=== PATIENT | male | born 1950 | race Caucasian/White ===

== ENCOUNTER → 2020-08-21 | Outpatient (CLI) | payer BC | LOC: YCFC.O 11:47 | PROVIDERS: ATTEND Nurse Practitioner Family | DX: Z20.828 Contact with and (suspected) exposure to other viral communicable diseases (principal) ==

== ENCOUNTER → 2020-09-20 | Outpatient (CLI) | payer BC ==
--- NOTE | 2020-09-20 17:23 | RAD ---
EXAM:Chest,2 Views CLINICAL INDICATION: Cough COMPARISON: There is no previous study for comparison. FINDINGS:Two views of the chest were obtained. The heart size is normal. The pulmonary vascularity is unremarkable. The lungs are clear. There is no consolidation, infiltrate, pleural effusion, or pneumothorax. IMPRESSION: No evidence of active pulmonary disease. Electronically signed by: Darwin Joe MD 09/20/2020 5:22 PM [facility]
== END ==
LOC: YCFC.O 16:52
PROVIDERS: ATTEND Nurse Practitioner
DX: R50.9 Fever, unspecified (principal); R05 Cough; R06.00 Dyspnea, unspecified

== ENCOUNTER → 2020-09-25 | Outpatient (CLI) | payer BC | LOC: YCFC.O 13:33 | PROVIDERS: ATTEND Family Medicine | DX: E80.6 Other disorders of bilirubin metabolism (principal) ==

== ENCOUNTER → 2020-10-11 | Outpatient (CLI) | payer BC, MEDICARE | LOC: YCFC.O 15:46 | PROVIDERS: ATTEND Family Medicine | DX: E80.6 Other disorders of bilirubin metabolism (principal) ==